=== PATIENT | male | born 1995 | race Caucasian/White ===

== ENCOUNTER 2019-12-12 10:55 | Emergency (ER) | payer OTHER ==
[~2019-12-12] VITALS: Ht 185.4 cm; Wt 113.4 kg
[2019-12-12 10:59] VITALS: BP_SYST 146
[2019-12-12] MEDS ORDERED: methylPREDNISolone SOD SUCC/PF 62.5 MG/ML VIAL IM ONE (11:15)
[2019-12-12] MEDS ORDERED: DIPHENHYDRAMINE INJ 50 MG/ML VIAL IM ONE (11:15)
[2019-12-12] MEDS ORDERED: EPINEPHrine 1 MG/ML AMP SUBCUT ONE (11:15)
[2019-12-12 12:17] VITALS: BP_SYST 128
== END 2019-12-12 12:17 | disposition home or self-care (01) ==
LOC: SED 10:55
DX: L50.9 Urticaria, unspecified (principal)
CPT/HCPCS: 96372; 99284; J0171; J1200; J2930